=== PATIENT | female | born 1965 | race Caucasian/White ===

== ENCOUNTER 2023-06-13 11:47 | Emergency (ER) | payer OTHER, BC ==
[~2023-06-13] VITALS: Ht 175.3 cm; Wt 112.9 kg
[2023-06-13] MEDS ORDERED: LEVOTHYROXINE175 MC1 PO (12:06)
[2023-06-13] MEDS ORDERED: HYDROCHLOROTH12.5 MG PO (12:06)
[2023-06-13] MEDS ORDERED: CYTOMEL5 MCG PO (12:07)
[2023-06-13] MEDS ORDERED: SINGULAIR10 MG PO (12:08)
[2023-06-13] MEDS ORDERED: LOSARTAN POTAS100 MG PO (12:08)
[2023-06-13] MEDS ORDERED: HYDROCODON-ACE1 EA10 PO (13:43)
[2023-06-13 13:51] VITALS: BP 144/79
== END 2023-06-13 13:51 | disposition home or self-care (01) ==
LOC: ED 11:47
DX: S62.652A Nondisplaced fracture of middle phalanx of right middle finger, initial encounter for closed fracture (principal); S62.654A Nondisplaced fracture of middle phalanx of right ring finger, initial encounter for closed fracture; I10 Essential (primary) hypertension; E03.9 Hypothyroidism, unspecified; Z88.1 Allergy status to other antibiotic agents; Z79.890 Hormone replacement therapy; Z79.899 Other long term (current) drug therapy; W01.0XXA Fall on same level from slipping, tripping and stumbling without subsequent striking against object, initial encounter; X50.1XXA Overexertion from prolonged static or awkward postures, initial encounter
CPT/HCPCS: 29125; 73130; 99283-25